=== PATIENT | male | born 1965 | race Two or more races ===

== ENCOUNTER 2018-06-05 13:53 | Inpatient (IN) | payer OTHER ==
[~2018-06-05] VITALS: Ht 177.8 cm; Wt 68.2 kg
[2018-06-05] MEDS ORDERED: ASPirin 81 mg TAB PO ONE (14:15)
[2018-06-05] MEDS ORDERED: MORPHINE SULFATE 4 MG/ML SYR/VIAL IV ONE ×2 (14:15→18:00)
[2018-06-05] MEDS ORDERED: ONDANSETRON HCL 4 MG/2 ML VIAL IV ONE (14:15)
[2018-06-05 15:01] LABS: Albumin 2.9 g/dL (3.4-5.0); Anion Gap 9 (5-15); Blood Urea Nitrogen 13 mg/dL (7-18); Calcium 8.6 mg/dL (8.5-10.1); Carbon Dioxide 22 mmol/L (21-32); Chloride 101 mmol/L (98-107); Glucose 232 mg/dL (74-106); Magnesium 2.1 mg/dL (1.6-2.6); Sodium 132 mmol/L (136-145)
[2018-06-05 15:07] LABS: Alanine Aminotransferase 56 U/L (16-61); Alkaline Phosphatase 106 U/L (45-117); Aspartate Aminotransferase 22 U/L (15-37); BUN/Creatinine Ratio 11.9; Basophils # (auto) 0 uL; Basophils % (auto) 0.1 % (0.0-2.0); Bilirubin, Total 0.9 mg/dL (0.2-1.0); Eosinophils # (auto) 0 uL; Eosinophils % (auto) 0.1 % (0.0-7.0); GFR African American 91 mL/min; GFR Non-African American 75 mL/min; Hematocrit 41.2 % (41.0-53.0); Lymphocytes # (auto) 0.3 uL; Lymphocytes % (auto) 3.1 % (10.0-50.0); Mean Corpuscular Hemoglobin 31.5 pg (28.0-32.0); Mean Corpuscular Hgb Conc. 34.1 g/dL (32.0-36.0); Mean Corpuscular Volume 92.5 fL (80.0-100.0); Monocytes # (auto) 0.9 uL; Monocytes % (auto) 8.5 % (0.0-12.0); Neutrophils # (auto) 9.4 uL; Neutrophils % (auto) 88.2 % (37.0-80.0); Platelet Count (auto) 205 10^3/uL (140-450); Red Blood Cells 4.45 10^6/uL (4.5-5.90); Red Cell Distribution Width 13.8 % (11.8-14.3); Total Protein 6.9 g/dL (6.4-8.2); White Blood Cell 10.7 10^3/uL (4.4-10.8)
[2018-06-05 15:21] LABS: INR 0.88 (0.9-1.15); Partial Thromboplastin Time 36.7 sec (23.78-33.04); Prothrombin Time 9.5 sec (9.27-12.13)
[2018-06-05] MEDS ORDERED: IOHEXOL 350 MG/ML 100ML IJ ONE (16:47)
[2018-06-05] MEDS ORDERED: MORPHINE SULFATE 4 MG/ML SYR/VIAL ONE (17:51)
[2018-06-05] MEDS ORDERED: PROMETHAZINE HCL 25 MG/ML 1ML ONE (17:52)
[2018-06-05] MEDS ORDERED: HYDROmorphone HCL 2 MG/ML VL IV ONE (18:00)
[2018-06-05] MEDS ORDERED: PROMETHAZINE HCL 25 MG/ML 1ML IV ONE (18:00)
[2018-06-05] MEDS ORDERED: ENOXAPARIN SOD 100 MG/1 ML SYRINGE SC ONE (18:00)
[2018-06-05] MEDS: SODIUM CHLORIDE 0.9% 1,000 ML IV SCH (18:46)
[2018-06-05] MEDS ORDERED: NITROGLYCERIN 0.4 MG SL TAB SL PRN (19:00)
[2018-06-05] MEDS ORDERED: PROMETHAZINE HCL 25 MG/ML 1ML IV PRN (19:00)
[2018-06-05] MEDS ORDERED: NALBUPHINE HCL 10 MG/1ml INJECTION IV PRN (19:00)
[2018-06-05] MEDS ORDERED: LORazepam 0.5 MG TAB PO PRN (19:00)
[2018-06-05] MEDS ORDERED: LACTULOSE 20Gm/30ML SOLN PO PRN (19:00)
[2018-06-05] MEDS ORDERED: MORPHINE SULFATE 4 MG/ML SYR/VIAL IV PRN (19:00)
[2018-06-05] MEDS ORDERED: ACETAMINOPHEN 500 MG TAB PO PRN (19:00)
[2018-06-05] MEDS ORDERED: DEXTROSE (50%) 50ML SYRG IV PRN (19:00)
[2018-06-05 20:10] VITALS: BP 170/96
[2018-06-05] MEDS ORDERED: chlordiazePOXIDE HCL 25 MG CAP PO PRN (20:15)
[2018-06-05] MEDS ORDERED: cefTRIAXone 1GM/50ML D5W 50 ML IV ONE (20:15)
[2018-06-05] MEDS: ATORVASTATIN 20 MG TAB PO SCH (20:37)
[2018-06-05] MEDS: InsuLIN REG 1unit/0.01ml Soln (100units/ml) SC SCH (20:52)
[2018-06-05] MEDS: METOPROLOL TARTRATE 25 MG TAB PO SCH (20:52)
[2018-06-05] MEDS: ACCU-CHEK COMFORT CURVE STRIP VI SCH (20:52)
[2018-06-05] MEDS: TEMAZEPAM 15 MG CAP PO PRN (21:54)
[2018-06-05] MEDS: traMADol HCL 50 MG TAB PO PRN (21:54)
[2018-06-05 22:00] VITALS: BP_SYST 167; BP_SYST 170; BP_DIAS 105; BP_DIAS 96
--- NOTE | 2018-06-05 22:05 | NUR ---
GIOVANNY HOSPITALIST, PAIN IS STILL UNBEARABLE AND BP ELEVATED TO 166/105 HR 84. AWAITING CALLBACK
[2018-06-05] MEDS: MORPHINE SULFATE 4 MG/ML SYR/VIAL IV PRN (22:53)
[2018-06-06] MEDS: chlordiazePOXIDE HCL 5 MG CAP PO SCH ×4 (00:30→17:14)
[2018-06-06] MEDS: ACCU-CHEK COMFORT CURVE STRIP VI SCH ×4 (05:33→21:43)
[2018-06-06] MEDS: ENOXAPARIN SOD 80 MG/0.8ML SYRINGE SC SCH ×2 (05:33→17:11)
[2018-06-06] MEDS: InsuLIN REG 1unit/0.01ml Soln (100units/ml) SC SCH ×4 (05:34→21:42)
[2018-06-06] MEDS: traMADol HCL 50 MG TAB PO PRN ×2 (05:34→11:34)
[2018-06-06 05:45] VITALS: BP 126/79
[2018-06-06 06:39] LABS: Cholesterol 69 mg/dL (< 200); HDL Cholesterol 23 mg/dL (40-59); LDL Cholesterol 24 mg/dL (< 100); Triglycerides 203 mg/dL (< 150)
[2018-06-06] MEDS ORDERED: PSEUDOEPHEDRINE HCL 30 MG TAB PO ONE (08:00)
[2018-06-06] MEDS ORDERED: PSEU30TA3 PO (08:18)
[2018-06-06] MEDS ORDERED: SERT25TA84 PO (08:18)
[2018-06-06] MEDS: MORPHINE SULFATE 4 MG/ML SYR/VIAL IV PRN (09:02)
[2018-06-06] MEDS: cefTRIAXone 1GM/50ML D5W 50 ML IV SCH (09:12)
[2018-06-06] MEDS: PANTOPRAZOLE 40 MG TAB PO SCH (09:13)
[2018-06-06] MEDS: ASPirin 81 mg TAB PO SCH (09:13)
[2018-06-06] MEDS: METOPROLOL TARTRATE 25 MG TAB PO SCH ×2 (09:13→21:29)
[2018-06-06] MEDS: NITROGLYCERIN 0.2MG/HR TOPICAL PATCH TD SCH (09:13)
[2018-06-06] MEDS: SODIUM CHLORIDE 0.9% 1,000 ML IV SCH ×2 (09:14→21:18)
--- NOTE | 2018-06-06 09:24 | NUR ---
Held Nitroglycerin patch, patient complained of severe sinus headache.
--- NOTE | 2018-06-06 10:45 | NUR ---
Hospitalist rounds Dr. Preciado at bedside, new orders received.
[2018-06-06] MEDS ORDERED: SERTRALINE HCL 50 MG TAB PO ONE (11:00)
--- NOTE | 2018-06-06 12:10 | NUR ---
Patient complained of severe left maxillary pain 10/10. Referred to Dr. Preciado with orders made. Morphine IV changed to Dilaudid IV. Will continue care.
[2018-06-06] MEDS: HYDROmorphone HCL 2 MG/ML VL IV PRN ×3 (12:47→21:21)
--- NOTE | 2018-06-06 14:45 | NUR ---
Cardiology consult Dr. Ladd at bedside.
[2018-06-06] MEDS: CLINDAMYCIN 600MG IV 50 ML IV SCH ×2 (14:47→21:19)
--- NOTE | 2018-06-06 19:30 | NUR ---
Opening Shift Note Assumed care of patient, awake and alert. No S/S of distress/SOB; states he is uncomfortable but understands that cannot yet have more dilaudid and is refusing p.o. pain med and morphine stating they "do nothing." Instructed on POC and to call for assist PRN, will continue to monitor for changes PRN. HOB in Gonzalez's position; bed low. Nurse call light on R hand side of bed.
[2018-06-06] MEDS: ATORVASTATIN 20 MG TAB PO SCH (21:19)
[2018-06-06 22:00] VITALS: BP 157/88
[2018-06-07] MEDS: chlordiazePOXIDE HCL 5 MG CAP PO SCH ×5 (01:03→23:42)
[2018-06-07] MEDS: HYDROmorphone HCL 2 MG/ML VL IV PRN ×6 (01:06→21:45)
[2018-06-07] MEDS: CLINDAMYCIN 600MG IV 50 ML IV SCH ×3 (05:31→22:19)
[2018-06-07] MEDS: ENOXAPARIN SOD 80 MG/0.8ML SYRINGE SC SCH ×2 (05:32→18:06)
[2018-06-07] MEDS: InsuLIN REG 1unit/0.01ml Soln (100units/ml) SC SCH ×4 (05:37→22:00)
[2018-06-07] MEDS: ACCU-CHEK COMFORT CURVE STRIP VI SCH ×4 (05:38→22:20)
[2018-06-07 05:41] VITALS: BP 125/72
--- NOTE | 2018-06-07 08:00 | NUR ---
Opening Shift Note Assumed care of patient, awake and alert. No S/S of distress/SOB 4/10 maxillofacial pain. Instructed on POC and to call for assist PRN, will continue to monitor for changes Q1hr and PRN.
[2018-06-07 09:00] VITALS: BP 140/85
[2018-06-07] MEDS: cefTRIAXone 1GM/50ML D5W 50 ML IV SCH (09:40)
[2018-06-07] MEDS: PANTOPRAZOLE 40 MG TAB PO SCH (09:41)
[2018-06-07] MEDS: METOPROLOL TARTRATE 25 MG TAB PO SCH ×2 (09:41→22:20)
[2018-06-07] MEDS: ASPirin 81 mg TAB PO SCH (09:42)
[2018-06-07] MEDS: NITROGLYCERIN 0.2MG/HR TOPICAL PATCH TD SCH (09:42)
--- NOTE | 2018-06-07 09:50 | NUR ---
Hospitalist Rounds Dr. Preciado at bedside, patient is advised. New orders received. Patient is for transfer to [place].
[2018-06-07] MEDS ORDERED: SERTRALINE HCL 50 MG TAB PO SCH (10:00)
--- NOTE | 2018-06-07 10:10 | NUR ---
Paged cyber defense incident responder high risk case manager regarding transfer to [facility]. Waiting for call back.
--- NOTE | 2018-06-07 10:45 | NUR ---
Leola pullman conductor nurse outreach case manager returned call, updated her about the order for [facility]. Instructions received. Contact # for [facility] [phone].
[2018-06-07] MEDS: SODIUM CHLORIDE 0.9% 1,000 ML IV SCH (11:38)
[2018-06-07 13:00] VITALS: BP 139/87
--- NOTE | 2018-06-07 13:53 | NUR ---
INFORMATIONS FAXED TO [facility] FAX #[phone]. WAITING FOR REPLY. WILL CONTINUE CARE.
--- NOTE | 2018-06-07 16:29 | NUR ---
Received a call dion [facility] confirming that they already received the fax of the transfer orders. They will call back again for additional informations. They will for bed availability. Will continue care.
[2018-06-07 17:00] VITALS: BP 149/99
--- NOTE | 2018-06-07 17:28 | NUR ---
Received a call dion [facility] [place], patient will be transferred to [facility] Rm 311. ETA around 2100. Phone # to give reports to [phone]. Left a message to patient's about the transfer. Will continue care.
--- NOTE | 2018-06-07 20:00 | NUR ---
OPENING SHIFT NOTE: PATIENT WAS IN BED RESTING BED AND COMPLAINING OF DISCOMFORT IN JAW/FACIAL AREA. ON 2L NC WITH BED RAILS UP X2. UPDATED PATIENT ON TRANSFER STATUS TO [facility]. CALL LIGHT WITHIN REACH. WILL CONTINUE TO MONITOR.
--- NOTE | 2018-06-07 21:15 | NUR ---
notified via [place] that patient pickup time has been pushed back to approximately 2300.
[2018-06-07 21:30] VITALS: BP 142/102
[2018-06-07] MEDS: ATORVASTATIN 20 MG TAB PO SCH (22:19)
--- NOTE | 2018-06-07 22:43 | NUR ---
ATTEMPTED TO CONTACT [facility] NURSE FOR REPORT BUT NO ANSWER. WILL RETRY LATER. [phone]
--- NOTE | 2018-06-07 23:08 | NUR ---
MAY NURSE CALLED AND RECEIVED REPORT.
[2018-06-07] MEDS: TEMAZEPAM 15 MG CAP PO PRN (23:43)
[2018-06-08] MEDS: HYDROmorphone HCL 2 MG/ML VL IV PRN (01:15)
--- NOTE | 2018-06-08 01:17 | NUR ---
TRANSPORT ARRIVED AT THIS TIME. PATIENT EXHIBITED NO SIGNS OF CHEST PAIN, SHORTNESS OF BREATH NOR DID HE COMPLAIN OF ANY. TELE BOX WAS REMOVED. ALL BELONGINGS WERE SENT WITH PATIENT. HE WAS ABLE TO AMBULATE TO [facility].
== END 2018-06-08 01:17 | disposition short-term general hospital (02) | DRG 606 ==
LOC: EDBD 13:53 → ER 13:59 → TELE 18:49 → TELE-CENTR 19:47
PROVIDERS: ADMIT Internal Medicine; ATTEND Internal Medicine
DX: M79.3 Panniculitis, unspecified (principal); I26.99 Other pulmonary embolism without acute cor pulmonale; L03.211 Cellulitis of face; E87.1 Hypo-osmolality and hyponatremia; L02.01 Cutaneous abscess of face; R07.89 Other chest pain; J44.9 Chronic obstructive pulmonary disease, unspecified; I10 Essential (primary) hypertension; F12.90 Cannabis use, unspecified, uncomplicated; F32.9 Major depressive disorder, single episode, unspecified; E16.2 Hypoglycemia, unspecified; I25.10 Atherosclerotic heart disease of native coronary artery without angina pectoris; Z83.3 Family history of diabetes mellitus; Z90.49 Acquired absence of other specified parts of digestive tract
CPT/HCPCS: 36415; 70486; 71045; 71275; 80053; 80061; 82550; 82962; 83036; 83735; 83880; 84443; 84484; 85025; 85610; 85652; 85730; 86141; 87040; 93005; 93306; 96372; 96374; 96375; 99291; G0378; J0696; J1815; J2405; J3490